=== PATIENT | female | born 1960 | race Caucasian/White ===

== ENCOUNTER 2025-02-09 13:39 | Inpatient (IN) | payer MEDICARE, OTHER ==
[~2025-02-09] VITALS: Ht 170.2 cm; Wt 81.6 kg
[2025-02-09 14:54] LABS: AMPHETAMINE, URINE NEGATIVE (NEGATIVE); BARBITURATE, URINE NEGATIVE (NEGATIVE); BENZODIAZEPINE, URINE NEGATIVE (NEGATIVE); CANNABINOID, URINE NEGATIVE (NEGATIVE); COCCAINE, URINE NEGATIVE (NEGATIVE); OPIATE, URINE NEGATIVE (NEGATIVE)
[2025-02-09 16:03] LABS: ASPARTATE AMINOTRANSFERASE 15 U/L (15-37); TOTAL PROTEIN, SERUM 7.5 g/dL (6.4-8.2)
[2025-02-09 16:04] LABS: ALCOHOL, BLOOD < 3 mg/dL (0-10)
[2025-02-09 18:13] LABS: PLATELET COUNT (AUTO) 338 K/uL (150-450); RED BLOOD CELL COUNT(AUTO) 5.69 MIL/uL (4.0-5.2); RED CELL DISTRIBUTION WIDTH 14.5 % (11.5-15.0); WHITE BLOOD COUNT (AUTO) 10.9 K/uL (4.3-11.0)
[2025-02-09 19:16] LABS: CALCIUM, SERUM 9.4 mg/dL (8.5-10.1); CREATININE 0.7 mg/dL (0.6-1.3); SODIUM SERUM 141.0 mmol/L (136-145); UREA NITROGEN, BLOOD 10.0 mg/dL (7-18)
[2025-02-09 20:10] LABS: APPEARANCE,URINE CLEAR (CLEAR); BLOOD, URINE TRACE-INTA Ery/uL (NEGATIVE); LEUKOCYTE ESTERASE ,URINE 3+ (NEGATIVE); NITRITE, URINE NEGATIVE (NEGATIVE); UGLUCOSE NEGATIVE (NEGATIVE)
[2025-02-09 20:38] LABS: ADD URINE CULTURE YES
[2025-02-09 22:20] VITALS: BP 136/66; TEMP 97.5; O2SAT 100
[2025-02-09] MEDS ORDERED: LORAZEPAM 0.5 MG TABLET PO PRN ×2 (22:30)
[2025-02-09] MEDS ORDERED: MAG HYDROX/AL HYDROX/SIMETH 30 ML UDC PO PRN (22:30)
[2025-02-09] MEDS ORDERED: ACETAMINOPHEN 325 MG TABLET PO PRN (22:30)
[2025-02-09] MEDS ORDERED: MAGNESIUM HYDROXIDE 30 ML UDC PO PRN (22:30)
[2025-02-09] MEDS ORDERED: TEMAZEPAM 7.5 MG CAPSULE PO PRN ×2 (22:30)
[2025-02-09] MEDS: BLOOD SUGAR DIAGNOSTIC 1 EACH STRIP IN ONE (22:40)
[2025-02-09] MEDS: CEPHALEXIN MONOHYDRATE 500 MG CAPSULE PO ONE (22:40)
[2025-02-10] MEDS ORDERED: DIVA500T2 PO (03:09)
[2025-02-10] MEDS ORDERED: RISP3TAB61 PO (03:09)
[2025-02-10] MEDS ORDERED: OLAN10TA3 PO (03:09)
[2025-02-10] MEDS ORDERED: Z GUARD REMEDY 4 OZ OINT TP PRN (07:30)
[2025-02-10 08:00] VITALS: BP 134/97; TEMP 98.1; O2SAT 97
[2025-02-10] MEDS: DIVALPROEX SODIUM 125 MG TABLET.DR PO SCH (12:06)
[2025-02-10] MEDS: NITROFURANTOIN/MONOHYDRATE MACROCRYSTALS 100 MG CAPSULE PO SCH (12:06)
[2025-02-10 16:00] VITALS: BP 121/56; TEMP 98.1; O2SAT 99
[2025-02-10 20:07] VITALS: BP 114/64; TEMP 98.1; O2SAT 98
[2025-02-11 08:00] VITALS: BP 111/55; TEMP 97.9; O2SAT 98
[2025-02-11 16:00] VITALS: BP 122/69; TEMP 98.8; O2SAT 97
[2025-02-11] MEDS: CLOTRIMAZOLE 1% 15 GM TUBE TP SCH (16:28)
[2025-02-11 19:58] VITALS: BP 115/59; TEMP 98.6; O2SAT 98
[2025-02-12 08:00] VITALS: BP 132/73; TEMP 98.2; O2SAT 95
[2025-02-12] MEDS ORDERED: VITAMINS A AND D 56.7 GM TUBE TP PRN (09:00)
[2025-02-12] MEDS: THERAHONEY GEL 1.5 OZ TUBE TP SCH (09:00)
[2025-02-12] MEDS: DIVALPROEX SODIUM 250 MG TABLET.DR PO SCH (11:00)
[2025-02-12] MEDS: SULFAMETH/TRIMETH 800/160 MG 1 UDTAB TABLET PO SCH (11:30)
[2025-02-12] MEDS: OLANZAPINE 10 MG VIAL IM PRN (11:53)
[2025-02-12 16:00] VITALS: BP 119/65; TEMP 97.5; O2SAT 96
[2025-02-12 19:44] VITALS: BP 114/60; TEMP 97.7; O2SAT 96
[2025-02-13 08:00] VITALS: BP 118/60; TEMP 97.6; O2SAT 96
[2025-02-13 16:00] VITALS: BP 129/89; TEMP 97.5; O2SAT 97
[2025-02-13 21:07] VITALS: BP 105/65; TEMP 97.7; O2SAT 97
[2025-02-14 08:00] VITALS: BP 141/61; TEMP 98; O2SAT 96
[2025-02-14 16:00] VITALS: BP 117/56; TEMP 97.5; O2SAT 96
[2025-02-14 20:19] VITALS: BP 128/72; TEMP 97.7; O2SAT 96
[2025-02-15 08:00] VITALS: BP 127/64; TEMP 97.8; O2SAT 96
[2025-02-15 16:14] VITALS: BP 131/67; TEMP 97.8; O2SAT 95
[2025-02-15 20:57] VITALS: BP 128/73; TEMP 98; O2SAT 97
[2025-02-16 08:00] VITALS: BP 117/65; TEMP 98.2; O2SAT 97
[2025-02-16] MEDS: DIVALPROEX SODIUM 250 MG TABLET.DR PO SCH ×2 (08:59→22:00)
[2025-02-16] MEDS: OLANZAPINE 10 MG VIAL IM PRN (09:36)
[2025-02-16 16:00] VITALS: BP 128/70; TEMP 99.7; O2SAT 98
[2025-02-16 19:50] VITALS: BP 114/59; TEMP 99.2; O2SAT 98
[2025-02-17 08:33] VITALS: BP 120/70; TEMP 97.9; O2SAT 100
[2025-02-17 16:13] VITALS: BP 153/60; TEMP 97.5; O2SAT 96
[2025-02-17 19:49] VITALS: BP 127/69; TEMP 98.1; O2SAT 96
[2025-02-18 08:00] VITALS: BP 144/77; TEMP 97.8; O2SAT 96
[2025-02-18 15:54] VITALS: BP 135/74; TEMP 97.8; O2SAT 98
[2025-02-18] MEDS: OLANZAPINE 10 MG VIAL IM PRN (17:00)
[2025-02-18 19:46] VITALS: BP 114/60; TEMP 97.7; O2SAT 98
[2025-02-18 20:58] VITALS: BP 114/60; TEMP 97.7; O2SAT 98
[2025-02-19 08:00] VITALS: BP 115/70; TEMP 98.9; O2SAT 96
[2025-02-19] MEDS ORDERED: HALOPERIDOL LACTATE INJ 5 MG/ML VIAL IM PRN (10:30)
[2025-02-19 16:00] VITALS: BP 118/77; TEMP 98; O2SAT 98
[2025-02-19] MEDS: HALOPERIDOL LACTATE INJ 5 MG/ML VIAL IM PRN (16:54)
[2025-02-19 19:56] VITALS: BP 107/73; TEMP 98.6; O2SAT 96
[2025-02-20 08:00] VITALS: BP 99/59; TEMP 97.7; O2SAT 93
[2025-02-20] MEDS: GUAIFENESIN/D-METHORPHAN HB 5 ML UDC PO PRN (10:21)
[2025-02-20 16:00] VITALS: BP 115/90; TEMP 98; O2SAT 99
[2025-02-20 21:19] VITALS: BP 97/61; TEMP 98; O2SAT 95
[2025-02-21 08:00] VITALS: BP 112/51; TEMP 98.6; O2SAT 96
[2025-02-21 16:00] VITALS: BP 100/72; TEMP 98.4; O2SAT 95
[2025-02-21 21:11] VITALS: BP 112/51; TEMP 98.3; O2SAT 96
[2025-02-22 08:00] VITALS: BP 110/68; TEMP 98; O2SAT 97
[2025-02-22 16:00] VITALS: BP 100/59; TEMP 98.2; O2SAT 98
[2025-02-22 20:00] VITALS: BP 103/59; TEMP 97.4; O2SAT 97
[2025-02-22 20:51] VITALS: BP 103/59; TEMP 97.4; O2SAT 97
[2025-02-23 08:00] VITALS: BP 114/67; TEMP 97.9; O2SAT 98
[2025-02-23] MEDS: HALOPERIDOL DECANOATE IM 100 MG/ML AMPUL IM ONE (14:58)
[2025-02-23 16:00] VITALS: BP 121/66; TEMP 97.5; O2SAT 99
[2025-02-23 20:08] VITALS: BP 127/66; TEMP 98; O2SAT 100
[2025-02-24 08:00] VITALS: BP 131/76; TEMP 97.8; O2SAT 97
== END 2025-02-24 14:28 | DRG 885 ==
LOC: ER 13:45 → GPS 21:48
PROVIDERS: ADMIT Nurse Practitioner Psychiatric/Mental Health; ATTEND Nurse Practitioner Acute Care
DX: F20.9 Schizophrenia, unspecified (principal); N39.0 Urinary tract infection, site not specified; F29 Unspecified psychosis not due to a substance or known physiological condition; Z73.6 Limitation of activities due to disability; I87.2 Venous insufficiency (chronic) (peripheral); B35.1 Tinea unguium; L60.3 Nail dystrophy; L85.3 Xerosis cutis; S81.812A Laceration without foreign body, left lower leg, initial encounter; X58.XXXA Exposure to other specified factors, initial encounter; Y92.9 Unspecified place or not applicable; Z87.898 Personal history of other specified conditions; Z86.59 Personal history of other mental and behavioral disorders; Z86.19 Personal history of other infectious and parasitic diseases; R62.7 Adult failure to thrive; Z53.20 Procedure and treatment not carried out because of patient's decision for unspecified reasons; Z91.148 Patient's other noncompliance with medication regimen for other reason; B96.4 Proteus (mirabilis) (morganii) as the cause of diseases classified elsewhere
CPT/HCPCS: 36415; 80048-TC; 80076-TC; 81001; 82962-TC; 85025-TC; 87081-TC; 87086-TC; 87186-TC; 97116-TC; 97530-TC; G0480; J1630; J1631; J3490